=== PATIENT | female | born 1985 | race African-American/Black ===

== ENCOUNTER 2022-01-07 07:29 | Inpatient (IN) | payer MEDICAID ==
[~2022-01-07] VITALS: Ht 165.1 cm; Wt 130.7 kg
[2022-01-07 08:23] LABS: BASOPHILS % 1.6 % (0.0-2.0); EOSINOPHILS % 3.1 % (0.0-5.0); HEMATOCRIT. 25.2 % (36.0-48.0); LYMPHOCYTES % 11.4 % (20.0-50.0); MEAN CORPUSCULAR HEMOGLOBIN 15.7 pg (28.0-32.0); MEAN CORPUSCULAR VOLUME 56.1 fL (81.0-99.0); MEAN PLATELET VOLUME 8.8 fl (7.4-10.4); MONOCYTES % 6.1 % (2.0-8.0); NEUTROPHILS % 77.8 % (40.0-76.0); PLATELET 627 x1000/uL (130-400); RED BLOOD CELL COUNT 4.49 mill/uL (4.2-5.4)
[2022-01-07 08:31] LABS: CHLORIDE 110 mEq/L (98-107)
[2022-01-07 08:35] LABS: ETHANOL BLOOD < 10 mg/dL
[2022-01-07 08:52] LABS: HCG SCREEN NEGATIVE
[2022-01-07] MEDS ORDERED: ASPIRIN 325MG EC TABLET PO ONE (09:00)
[2022-01-07 09:35] LABS: PLATELET ESTIMATE INCREASED
[2022-01-07 09:40] LABS: CLARITY URINE CLEAR (CLEAR); COLOR URINE YELLOW (YELLOW); KETONES URINE NEGATIVE (NEGATIVE); LEUKOCYTE ESTERASE URINE NEGATIVE (NEGATIVE); NITRITE URINE NEGATIVE (NEGATIVE); OCCULT BLOOD URINE NEGATIVE (NEGATIVE); PH URINE 7.5 (4.5-8.0); PROTEIN URINE NEGATIVE (NEGATIVE); SPECIFIC GRAVITY URINE 1.052 (1.005-1.030); UROBILINOGEN URINE 0.2 E.U./dL (0.2-1.0)
[2022-01-07] MEDS ORDERED: IOHEXOL-350 100 ML BOTTLE ONE (09:47)
[2022-01-07 09:56] LABS: *AMPHETAMINES SCREEN URINE NEGATIVE (NEGATIVE); *BARBITURATES SCREEN URINE NEGATIVE (NEGATIVE); *BENZODIAZEPINES SCREEN URINE NEGATIVE (NEGATIVE); *COCAINE SCREEN URINE NEGATIVE (NEGATIVE); CANNABINOID URINE SCREEN NEGATIVE (NEGATIVE); METHADONE URINE SCREEN NEGATIVE (NEGATIVE); OPIATES URINE SCREEN NEGATIVE (NEGATIVE); PHENCYCLIDINE URINE SCREEN NEGATIVE (NEGATIVE)
[2022-01-07] MEDS ORDERED: GUAIFENESIN 200MG/10ML SUGAR FREE UDC PO PRN (11:00)
[2022-01-07] MEDS ORDERED: ENOXAPARIN 40MG/0.4ML SYR SUBCUT SCH (11:00)
[2022-01-07] MEDS ORDERED: CLONIDINE 0.1MG TABLET PO PRN (11:00)
[2022-01-07] MEDS ORDERED: MAGNESIUM/ALUMINUM HYDROXIDE/SIMETHICONE 30ML UDC PO PRN (11:00)
[2022-01-07] MEDS ORDERED: IPRATROPIUM/ALBUTEROL 0.5-3(2.5)MG/3ML NEB NEB PRN (11:00)
[2022-01-07] MEDS ORDERED: ONDANSETRON HCL 4MG/2ML INJ IV PRN (11:00)
[2022-01-07] MEDS ORDERED: KETOROLAC 15MG/ML VIAL IV PRN (11:00)
[2022-01-07] MEDS ORDERED: NITROGLYCERIN 0.4MG TABLET SL SL PRN (11:00)
[2022-01-07] MEDS ORDERED: DOCUSATE SODIUM 100MG CAPSULE PO PRN (11:00)
[2022-01-07 11:33] LABS: T4 FREE 0.9 ng/dL (0.76-1.46)
[2022-01-07 11:54] LABS: FOLIC ACID (FOLATE) SERUM 3.7 ng/mL (>5.38)
[2022-01-07] MEDS: FERROUS SULFATE 300MG/5ML UDC PO SCH ×2 (13:58→17:16)
[2022-01-07 16:15] VITALS: BP 123/77
[2022-01-07 17:25] VITALS: BP 123/77
[2022-01-07] MEDS ORDERED: INFLUENZA VACCINE 05/PF 0.5 ML SYRINGE IM ONE (17:45)
[2022-01-07] MEDS ORDERED: FOLIC ACID 1 MG in SODIUM CHLORIDE 0.9% 500 ML IV ONE (18:30)
[2022-01-07 20:00] VITALS: BP 127/65
[2022-01-07] MEDS: FAMOTIDINE 20MG TABLET PO SCH (20:31)
[2022-01-07] MEDS ORDERED: ZOLPIDEM TARTRATE 5MG TABLET PO PRN (21:00)
[2022-01-07] MEDS: ACETAMINOPHEN 325MG TABLET PO PRN (21:53)
[2022-01-08] VITALS: BP 117/71
[2022-01-08 04:00] VITALS: BP 125/74
[2022-01-08 06:50] LABS: CHLORIDE 113 mEq/L (98-107)
[2022-01-08] MEDS: FERROUS SULFATE 300MG/5ML UDC PO SCH ×3 (06:50→19:04)
[2022-01-08 06:56] LABS: PHOSPHORUS 2.6 mg/dL (2.5-4.9)
[2022-01-08 08:00] VITALS: BP 136/76
[2022-01-08 08:18] LABS: BASOPHILS % 1.2 % (0.0-2.0); EOSINOPHILS % 5.3 % (0.0-5.0); HEMATOCRIT. 22.9 % (36.0-48.0); LYMPHOCYTES % 26.6 % (20.0-50.0); MEAN CORPUSCULAR HEMOGLOBIN 15.9 pg (28.0-32.0); MEAN CORPUSCULAR VOLUME 56.9 fL (81.0-99.0); MEAN PLATELET VOLUME 8.6 fl (7.4-10.4); MONOCYTES % 7.8 % (2.0-8.0); NEUTROPHILS % 59.1 % (40.0-76.0); PLATELET 619 x1000/uL (130-400); RED BLOOD CELL COUNT 4.02 mill/uL (4.2-5.4); RED CELL DISTRIBUTION WIDTH 30.1 % (11.6-14.6)
[2022-01-08] MEDS: FAMOTIDINE 20MG TABLET PO SCH ×2 (08:33→21:59)
[2022-01-08] MEDS ORDERED: FOLIC ACID 1MG TABLET PO SCH (09:00)
[2022-01-08] MEDS ORDERED: ASPIRIN 81MG EC TABLET PO SCH (09:00)
[2022-01-08 09:01] LABS: HEMOGLOBIN. 6.4 g/dL (12.0-16.0)
[2022-01-08 12:00] VITALS: BP 133/86
[2022-01-08] MEDS: ACETAMINOPHEN 325MG TABLET PO PRN ×2 (15:11→21:58)
[2022-01-08 16:00] VITALS: BP 115/64
[2022-01-08 20:00] VITALS: BP 107/59
[2022-01-09] VITALS: BP 113/59
[2022-01-09 04:00] VITALS: BP 104/68
[2022-01-09] MEDS: ACETAMINOPHEN 325MG TABLET PO PRN (05:16)
[2022-01-09 06:49] LABS: CHLORIDE 111 mEq/L (98-107)
[2022-01-09 06:52] LABS: BASOPHILS % 1.4 % (0.0-2.0); EOSINOPHILS % 5.9 % (0.0-5.0); HEMATOCRIT. 24.8 % (36.0-48.0); LYMPHOCYTES % 25.8 % (20.0-50.0); MEAN CORPUSCULAR HEMOGLOBIN 15.8 pg (28.0-32.0); MEAN CORPUSCULAR VOLUME 56.6 fL (81.0-99.0); MEAN PLATELET VOLUME 8.6 fl (7.4-10.4); MONOCYTES % 7.6 % (2.0-8.0); NEUTROPHILS % 59.3 % (40.0-76.0); PLATELET 721 x1000/uL (130-400); RED BLOOD CELL COUNT 4.39 mill/uL (4.2-5.4); RED CELL DISTRIBUTION WIDTH 30.4 % (11.6-14.6)
[2022-01-09 09:48] LABS: HEMOGLOBIN. 6.9 g/dL (12.0-16.0)
== END 2022-01-09 06:15 | disposition left against medical advice (07) | DRG 663 ==
LOC: ER 07:29 → EDBEDREQTM 08:59 → EDBEDREQSVC 08:59 → EDBEDREQ 08:59 → 8WST 10:23 → EDBEDREQTM 10:38 → EDBEDREQ 10:38 → ENRESERV 15:17
PROVIDERS: ADMIT Internal Medicine; ATTEND Internal Medicine
DX: D50.9 Iron deficiency anemia, unspecified (principal); E44.1 Mild protein-calorie malnutrition; D52.9 Folate deficiency anemia, unspecified; E83.51 Hypocalcemia; N93.8 Other specified abnormal uterine and vaginal bleeding; Z20.822 Contact with and (suspected) exposure to COVID-19; E66.01 Morbid (severe) obesity due to excess calories; Z53.29 Procedure and treatment not carried out because of patient's decision for other reasons; Z86.73 Personal history of transient ischemic attack (TIA), and cerebral infarction without residual deficits; Z68.42 Body mass index [BMI] 45.0-49.9, adult; Z23 Encounter for immunization; R47.81 Slurred speech; D25.9 Leiomyoma of uterus, unspecified
CPT/HCPCS: 36415; 70496; 70498; 71045; 76830; 76856; 80053; 80061; 80305; 80320; 81003; 82607; 82746; 82962; 83036; 83540; 83550; 83735; 84100; 84439; 84443; 84484; 84703; 85025; 86850; 86900; 86920; 87426; 90686; 93005; 93306; 93880; 93970; 99291; J3490; J7040; Q9967; G0480